=== PATIENT | male | born 1950 | race Caucasian/White ===

== ENCOUNTER 2021-04-24 23:33 | Emergency (ER) | payer MEDICARE, OTHER ==
[2021-04-24] MEDS ORDERED: Lidocaine 2% Jelly 10 ML Urojet MUCMEM ONE (23:59)
[2021-04-25] MEDS ORDERED: Lidocaine 2% Jelly 10 ML Urojet ONE (00:01)
--- NOTE | 2021-04-25 00:10 | EDM.PDOC ---
ED HPI GENERAL MEDICAL PROBLEM - General Chief Complaint: Genitourinary Problem Stated Complaint: UNABLE TO URINATE Time Seen by Provider: 04/24/21 23:53 Source of Information: Reports: Patient, Family () History Limitations: Reports: No Limitations - History of Present Illness INITIAL COMMENTS - FREE TEXT/NARRATIVE: Mr. Hou is a very pleasant 70-year-old gentleman who now presents the ED due to the inability to urinate since 18:00 this evening. He states that he was diagnosed with BPH at a [place] walk-in clinic about 2 weeks ago, and was started on tamsulosin (Flomax). He states that he has been taking the tamsulosin as prescribed. No recent fever, flank pain, nausea, or vomiting. No prior similar symptoms. Here in the ED, patient's initial BP is found to be elevated at 171/88, otherwise, he is hemodynamically stable, afebrile, saturating 90% on room air. He states that he feels a strong urge to urinate, but otherwise appears to be comfortable and in no acute distress. Prior to this evening, the patient denies having a recent fever, chills, sore throat, ear pain, nasal or sinus congestion, cough, dyspnea, chest pain, palpitations, nausea, vomiting, constipation, diarrhea, abdominal pain, urinary symptoms, recent weight gain or weight loss, recent bloody bowel movements or black bowel movements, recent joint aches, headaches, or rashes. The patient and his live in [place], and are visiting family in this area. They will be returning home this coming 04/27/2021. He does not have a PCP. He has an appointment to see the Urologist Dr. Nikko Bailey, in [place], in June. Bladder Pain Score (Numeric/FACES): 6 - Related Data Allergies Allergy/AdvReac Type Severity Reaction Status Date / Time No Known Allergies Allergy Verified 04/24/21 23:52 Home Meds: Home Meds Tamsulosin HCl [Flomax] 0.4 mg PO 04/24/21 [History] atorvaSTATin [Lipitor] 10 mg PO BEDTIME 04/24/21 [History] Past Medical History Cardiovascular History: Reports: High Cholesterol, Hypertension (untreated) Genitourinary History: Reports: BPH Endocrine/Metabolic History: Reports: Obesity/BMI 30+ - Past Surgical History GI Surgical History: Reports: Cholecystectomy (around 2004), Hernia, Inguinal (bilateral) Musculoskeletal Surgical History: Reports: Arthroscopic Knee (right) Social & Family History - Tobacco Use Tobacco Use Status *Q: Never Tobacco User - Alcohol Use Alcohol Use History: Yes Alcohol Use Frequency: Socially - Recreational Drug Use Recreational Drug Use: No - Living Situation & Occupation Living situation: Reports: , with Spouse Occupation: Retired ED ROS GENERAL - Review of Systems Review Of Systems: Comprehensive ROS is negative, except as noted in HPI. ED EXAM, RENAL/ - Physical Exam Exam: See Below Exam Limited By: No Limitations General Appearance: Alert, WD/WN, No Apparent Distress Eye Exam: Bilateral Eye: EOMI, Normal Inspection Ears: Normal External Exam, Hearing Grossly Normal Nose: Normal Inspection Throat/Mouth: Normal Inspection, Normal Lips, Normal Voice, No Airway Compromise Head: Atraumatic, Normocephalic Neck: Normal Inspection, Full Range of Motion Respiratory/Chest: No Respiratory Distress, Lungs Clear, Normal Breath Sounds, No Accessory Muscle Use Cardiovascular: Normal Peripheral Pulses, Regular Rate, Rhythm, No Edema, No Gallop, No JVD, No Murmur, No Rub GI/Abdominal: Normal Bowel Sounds, Soft, No Distention, No Abnormal Bruit, Tender (Suprapubically only. Nontender elsewhere.), Other (Firm bladder) Back Exam: Normal Inspection, Full Range of Motion, NT Extremities: Normal Range of Motion, No Pedal Edema, Normal Capillary Refill, Other (Right knee brace) Neurological: Alert, Oriented, Normal Cognition, No Motor/Sensory Deficits Psychiatric: Normal Affect Skin Exam: Warm, Dry, Intact, Normal Color, No Rash Course - Vital Signs Last Recorded V/S: Last Vital Signs Temp 36.1 C 04/24/21 23:49 Pulse 80 04/24/21 23:49 Resp 16 04/24/21 23:49 BP 171/88 H 04/24/21 23:49 Pulse Ox 98 04/24/21 23:49 - Orders/Labs/Meds Orders: Active Orders 24 hr Category Date Time Status Bladder Scan [RC] ASDIRECTED Care 04/24/21 23:57 Active Insert Wesley Catheter [Insert Urinary Catheter] [OM.PC] Care 04/24/21 23:58 Ordered Q24H Urinary Catheter Assessment [RC] ASDIRECTED Care 04/24/21 23:58 Active Labs: Laboratory Tests 04/25/21 Range/Units 00:14 Urine Color Light yellow (Yellow) Urine Appearance Clear (Clear) Urine pH 6.5 (5.0-8.0) Ur Specific [place] 1.015 (1.005-1.030) Urine Protein Negative (Negative) Urine Glucose (UA) Negative (Negative) Urine Ketones Negative (Negative) Urine Occult Blood 2+ H (Negative) Urine Nitrite Negative (Negative) Urine Bilirubin Negative (Negative) Urine Urobilinogen 0.2 (0.2-1.0) Ur Leukocyte Esterase Negative (Negative) Urine RBC 0-5 (0-5) /hpf Urine WBC 0-5 (0-5) /hpf Ur Epithelial Cells Not seen (0-5) /hpf Urine Bacteria Rare (FEW) /hpf Urine Mucus Not seen (FEW) /hpf Meds: Medications Discontinued Medications Generic Name Dose Route Start Last Admin Trade Name Millerq PRN Reason Stop Dose Admin Lidocaine HCl 10 ml 04/24/21 23:59 04/25/21 00:32 Lidocaine 2% Jelly 10 Ml Urojet MUCMEM 04/25/21 00:00 10 ml ONETIME ONE Administration Lidocaine HCl Confirm 04/25/21 00:01 Lidocaine 2% Jelly 10 Ml Urojet Administered 04/25/21 00:02 Dose 10 ml .ROUTE .STK-MED ONE - Re-Assessments/Exams Free Text/Narrative Re-Assessment/Exam: 04/25/21 00:06 As above, the patient was diagnosed with BPH at a walk-in clinic about 2 weeks ago, and was started on Flomax, which he has been taking, but he has been unable to void since 18:00 this evening. No recent fever, flank pain, nausea or vomiting. A bladder scan at triage revealed 600 mL of retained urine. I have ordered a Wesley catheter to be placed, along with a urinalysis. 04/25/21 00:38 The patient's urinalysis is unremarkable. 04/25/21 00:40 Urinalysis results discussed with the patient and his . I will discharge the patient home. He is to empty the leg bag as needed, and keep the bag below the level of his body when he is sleeping, to prevent backflow of urine into his bladder. He is to call the office of his Urologist on Tuesday, to arrange to be seen [place]. Departure - Departure Time of Disposition: 00:40 Disposition: Home, Self-Care 01 Condition: Good Clinical Impression: Urinary outflow obstruction - Discharge Information *PRESCRIPTION DRUG MONITORING PROGRAM REVIEWED*: Not Applicable *COPY OF PRESCRIPTION DRUG MONITORING REPORT IN PATIENT KAYLA: Not Applicable Referrals: PCP,None [Primary Care Provider] - Nikko Bailey MD [Ordering Only Provider] - Forms: ED Department Discharge Additional Instructions: You were seen in the emergency room after being unable to urinate since 6:00 this evening, in the setting of being diagnosed with BPH about 2 weeks ago. Work-up in the ER included a bladder scan and a urinalysis. The bladder scan found a 600 mL of urine, therefore a Wesley catheter was placed to a leg bag. Empty leg bag, as demonstrated by your nurse, as often as necessary. Be sure that the bag is below the level of your body when you sleep, so that urine does not backflow into your bladder. Continue to take your previously prescribed tamsulosin (Flomax). Call the office of your Urologist, Dr. Nikko Bailey, first thing Tuesday, to arrange to be seen as soon as possible. Make sure that the legal receptionist understands that you have a Wesley catheter. If any other problems, please do not hesitate to return to the ER. Sepsis Event Note (ED) - Evaluation Sepsis Screening Result: No Definite Risk - Focused Exam Vital Signs: Vital Signs Temp Pulse Resp BP Pulse Ox 04/24/21 23:49 36.1 C 80 16 171/88 H 98 - My Orders Last 24 Hours: My Active Orders 04/24/21 23:57 Bladder Scan [RC] ASDIRECTED 04/24/21 23:58 Insert Wesley Catheter [Insert Urinary Catheter] [OM.PC] Q24H Urinary Catheter Assessment [RC] ASDIRECTED - Assessment/Plan Last 24 Hours: My Active Orders 04/24/21 23:57 Bladder Scan [RC] ASDIRECTED 04/24/21 23:58 Insert Wesley Catheter [Insert Urinary Catheter] [OM.PC] Q24H Urinary Catheter Assessment [RC] ASDIRECTED
== END 2021-04-25 01:16 | disposition home or self-care (01) ==
LOC: JD.ED 23:33
DX: N13.9 Obstructive and reflux uropathy, unspecified (principal); E78.00 Pure hypercholesterolemia, unspecified; I10 Essential (primary) hypertension; E66.9 Obesity, unspecified; Z79.899 Other long term (current) drug therapy; Z68.33 Body mass index [BMI] 33.0-33.9, adult
CPT/HCPCS: 51702; 81001; 99284; 99284-25